=== PATIENT | male | born 1970 | race Caucasian/White ===

== ENCOUNTER 2019-10-11 11:06 | Outpatient (CLI) | payer MEDICARE, MEDICAID, SELFPAY ==
--- NOTE | 2019-10-11 11:44 | XR_ITS ---
WS: [id number] LUMBAR SPINE: 3 VIEWS TECHNIQUE: AP, lateral and L5-S1 spot. HISTORY: LOW BACK PAIN COMPARISON: None available. Mild increase in lumbar lordosis. 3 mm retrolisthesis of L1, L2 and L3. Small endplate osteophytes at all levels. Larger hypertrophic bone formation along the RIGHT marginal aspect of L1 and L2. Moderat e disc space narrowing at L5-S1. Foraminal stenosis at L5-S1 is suspected. SI joints are symmetric bilaterally. No soft tissue abnormalities. XR/XR lumbar spine 2-3V* [id number] IMPRESSION: 1. Multilevel lumbar spondylosis. 2. Moderate disc space narrowing L5-S1. 3. Large RIGHT marginal osteophytes at L1-2.
== END 2019-10-11 11:07 | disposition home or self-care (01) ==
LOC: RADWPI 11:18 → RAD 11:18 → RADWPI 11:21 → RAD 11:25
PROVIDERS: PCP Family Medicine; Visit Provider Nurse Practitioner
DX: M47.816 Spondylosis without myelopathy or radiculopathy, lumbar region (principal); M25.78 Osteophyte, vertebrae; M48.061 Spinal stenosis, lumbar region without neurogenic claudication
CPT/HCPCS: 72100

== ENCOUNTER 2021-04-01 16:03 | Outpatient (CLI) | payer OTHER, SELFPAY ==
[2021-04-01 16:59] LABS: C Reactive Protein 52.9 mg/L (0.0-4.9)
== END 2021-04-01 16:04 | disposition home or self-care (01) ==
LOC: LAB 16:06
PROVIDERS: PCP Family Medicine; Visit Provider Family Medicine
DX: Z01.89 Encounter for other specified special examinations (principal)
CPT/HCPCS: 86140; 87040

== ENCOUNTER 2022-07-14 15:35 | Outpatient (CLI) | payer MEDICARE, MEDICAID, SELFPAY ==
[2022-07-14 16:20] LABS: INR 1.06 (0.8-1.2)
== END 2022-07-14 15:36 | disposition home or self-care (01) ==
PROVIDERS: PCP Family Medicine; Visit Provider Student in an Organized Health Care Education/Training Program
DX: Z01.89 Encounter for other specified special examinations (principal)
CPT/HCPCS: 85610